=== PATIENT | male | born 1955 | race Caucasian/White ===

== ENCOUNTER 2017-02-02 07:17 | Inpatient (IN) | payer BC ==
[2017-02-02] MEDS ORDERED: SODIUM CHLORIDE 0.9% 1,000 ML IV STA ×2 (08:16→08:40)
[2017-02-02] MEDS ORDERED: IV VANCOMYCIN PER PHARMACY 1 EACH MISC MISCELLANE PRN (08:17)
[2017-02-02] MEDS ORDERED: VANCOMYCIN 1,750 MG in SODIUM CHLORIDE 0.9% 250 ML IVPB STA (08:17)
[2017-02-02] MEDS ORDERED: HYDROmorphone 1 MG/ML 1 ML SYRINGE IVP STA (08:17)
[2017-02-02] MEDS ORDERED: ONDANSETRON 4 MG/2 ML VIAL IVP STA (08:17)
--- NOTE | 2017-02-02 08:20 | ED ---
General Adult HPI <Blake Downing - Last Filed: 02/02/17 09:20> - General Source: patient, RN notes reviewed Mode of arrival: ambulatory Limitations: no limitations <Miki Ro - Last Filed: 02/02/17 09:23> - General Chief complaint: Extremity Injury, Lower Stated complaint: sent by [facility] for mrsa left 2nd toe Time Seen by Provider: 02/02/17 08:09 - History of Present Illness Initial comments: Patient 61-year-old male who presents emergency room today with a chief complaint of infection to the left foot. He does admit that he noticed symptoms proxy 5 days ago. States located like a small spider bite. Patient does admit that [facility] ago was placed on doxycycline and also Keflex. States the infection has got worse. There is more redness swelling to his left second toe spreading of the left foot. Patient does admit to increased pain. He states pain medication of tramadol they gave him is not helping. Patient does admit to history of MRSA. Denies any other complaints at this time. Patient denies any recent fever, chills, shortness of breath, chest pain, back pain, abdominal pain, nausea or vomiting, numbness or tingling , dysuria or hematuria, constipation or diarrhea, headaches or visual changes, or any other complaints. (Miki Ro) - Related Data Home Medications Medication Instructions Recorded Confirmed Aspirin EC [Ecotrin Low Dose] 81 mg PO DAILY 02/02/17 02/02/17 Mupirocin 2% Oint [Bactroban 2% 1 applic TOPICAL DAILY 02/02/17 02/02/17 Oint] Nebivolol HCl [Bystolic] 10 mg PO DAILY 02/02/17 02/02/17 traMADol HCL [Ultram] 50 mg PO Q4HR PRN 02/02/17 02/02/17 Allergies Allergy/AdvReac Type Severity Reaction Status Date / Time No Known Allergies Allergy Verified 02/02/17 07:46 Review of Systems ROS Other: All systems not noted in ROS Statement are negative. <Blake Downing - Last Filed: 02/02/17 09:20> ROS Other: All systems not noted in ROS Statement are negative. <Miki Ro - Last Filed: 02/02/17 09:23> ROS Statement: Those systems with pertinent positive or pertinent negative responses have been documented in the HPI. Past Medical History Past Medical History: Hypertension History of Any Multi-Drug Resistant Organisms: MRSA Past Surgical History: Joint Replacement, Orthopedic Surgery Past Psychological History: No Psychological Hx Reported Smoking Status: Current every day smoker Past Alcohol Use History: Occasional Past Drug Use History: None Reported <Miki Ro - Last Filed: 02/02/17 09:23> General Exam General appearance: alert, in no apparent distress Head exam: Present: atraumatic, normocephalic, normal inspection Eye exam: Present: normal appearance, PERRL, EOMI. Absent: scleral icterus, conjunctival injection, periorbital swelling ENT exam: Present: normal exam, mucous membranes moist Neck exam: Present: normal inspection. Absent: tenderness, meningismus, lymphadenopathy Respiratory exam: Present: normal lung sounds bilaterally. Absent: respiratory distress, wheezes, rales, rhonchi, stridor Cardiovascular Exam: Present: regular rate, normal rhythm, normal heart sounds. Absent: systolic murmur, diastolic murmur, rubs, gallop, clicks GI/Abdominal exam: Present: soft, normal bowel sounds. Absent: distended, tenderness, guarding, rebound, rigid Extremities exam: Present: normal inspection, full ROM, normal capillary refill. Absent: tenderness, pedal edema, joint swelling, calf tenderness Back exam: Present: normal inspection Neurological exam: Present: alert, oriented X3, CN II-XII intact Psychiatric exam: Present: normal affect, normal mood Skin exam: Present: warm, dry, intact, normal color. Absent: rash <Blake Downing - Last Filed: 02/02/17 09:20> Limitations: no limitations <Miki Ro - Last Filed: 02/02/17 09:23> - General Exam Comments Initial Comments: General: The patient is awake and alert, in no distress, and does not appear acutely ill. Neck: The neck is supple, there is no tenderness or JVD. Cardiovascular: There is a regular rate and rhythm. No murmur, rub or gallop is appreciated. Respiratory: Lungs are clear to auscultation, respirations are non-labored, breath sounds are equal. No wheezes, stridor, rales, or rhonchi. Musculoskeletal: Full range of motion. Sensation intact. Pulses equal bilaterally 2+. Strength 5/5. Neurological: A&O x 3. CN II-XII intact, There are no obvious motor or sensory deficits. Coordination appears grossly intact. Speech is normal. Skin: He does have increased redness swelling to the top of the second digit of the left foot third there is increased redness swelling spreading up the left foot to approximately left ankle. Area centrally over the left second digit has a white appearance. Psychiatric: Normal mood and affect. (Miki Ro) Course <Blake Downing - Last Filed: 02/02/17 09:20> <Miki Ro - Last Filed: 02/02/17 09:23> Vital Signs 02/02/17 07:21 Temperature 98.8 F Pulse Rate 85 Respiratory 20 Rate Blood Pressure 126/69 O2 Sat by Pulse 97 Oximetry - Reevaluation(s) Reevaluation #1: 02/02/17 09:20 On evaluation patient does have significant infection of the toe, has significant cellulitis require IV antibiotics secondary to being on outpatient antibiotic no improvement (Blake Downing) Medical Decision Making - Lab Data Result diagrams: 02/02/17 07:59 <Blake Downing - Last Filed: 02/02/17 09:20> - Lab Data Result diagrams: 02/02/17 07:59 <Miki Ro - Last Filed: 02/02/17 09:23> - Medical Decision Making 61 year with significant toe cellulitis, patient replace an IV antibiotics, hence failed outpatient treatment (Blake Downing) - Lab Data Lab Results 02/02/17 Range/Units 07:59 WBC 11.2 H (3.8-10.6) k/uL RBC 5.29 (4.30-5.90) m/uL Hgb 17.5 (13.0-17.5) gm/dL Hct 50.6 (39.0-53.0) % MCV 95.8 (80.0-100.0) fL MCH 33.0 (25.0-35.0) pg MCHC 34.5 (31.0-37.0) g/dL RDW 13.7 (11.5-15.5) % Plt Count 187 (150-450) k/uL Neutrophils % 71 % Lymphocytes % 13 % Monocytes % 8 % Eosinophils % 6 % Basophils % 0 % Neutrophils # 8.0 H (1.3-7.7) k/uL Lymphocytes # 1.5 (1.0-4.8) k/uL Monocytes # 0.9 (0-1.0) k/uL Eosinophils # 0.7 (0-0.7) k/uL Basophils # 0.0 (0-0.2) k/uL Manual Slide Review Performed Hypochromasia Slight Poikilocytosis Moderate Disposition <Blake Downing - Last Filed: 02/02/17 09:20> Time of Disposition: 09:08 <Miki Ro - Last Filed: 02/02/17 09:23> Clinical Impression: Cellulitis Disposition: ADMITTED IP TO THIS HOSP Condition: Good Referrals: Michael Uribe DO [Primary Care Provider] - 1-2 days
[2017-02-02 08:32] LABS: Basophils % (A) 0 %; CH 31.3; CHCM 32.8; Eosinophils # (A) 0.7 k/uL (0-0.7); Eosinophils % (A) 6 %; HCT 50.6 % (39.0-53.0); HGB 17.5 gm/dL (13.0-17.5); Hypochromasia Slight; Large Platelets Flag Marked; Luc # (Auto) 0.18; Luc % (Auto) 2; Lymphocytes # (A) 1.5 k/uL (1.0-4.8); Lymphocytes % (A) 13 %; MCHC 34.5 g/dL (31.0-37.0); MCV 95.8 fL (80.0-100.0); Mean Platelet Volume 13.4; Monocytes # (A) 0.9 k/uL (0-1.0); Monocytes % (A) 8 %; Neutrophils % (A) 71 %; Poikilocytosis Moderate; RBC 5.29 m/uL (4.30-5.90); RDW 13.7 % (11.5-15.5); WBC 11.2 k/uL (3.8-10.6); WBC (Perox) 11.88
--- NOTE | 2017-02-02 08:44 | XR ---
EXAMINATION TYPE: XR foot complete LT DATE OF EXAM: 02/02/2017 8:33 AM CLINICAL HISTORY: Second toe infection and pain. TECHNIQUE: Frontal, lateral, and oblique images of the left foot are obtained. COMPARISON: None FINDINGS: There is no acute fracture/dislocation evident in the left foot. No suspicious cortical de struction or periosteal reaction is seen. Small superior and moderate size inferior calcaneal spurs a re noted. The joint spaces in the left foot appear within normal limits. The overlying soft tissue a ppears unremarkable. IMPRESSION: There is no convincing radiographic evidence for acute osteomyelitis with particular att ention to second toe. If clinical suspicion persists further investigation with 3 phase bone scan or MRI may be warranted.
[2017-02-02 08:46] LABS: Manual Review Performed
[2017-02-02] MEDS ORDERED: ONDANSETRON 4 MG/2 ML VIAL IVP PRN (09:21)
[2017-02-02] MEDS ORDERED: ACETAMINOPHEN TAB 325 MG TAB PO PRN (09:21)
[2017-02-02] MEDS ORDERED: NALOXONE 0.4 MG/ML 1 ML VIAL IV PRN (09:21)
[2017-02-02] MEDS ORDERED: SODIUM CHLORIDE 0.9% 1,000 ML IV ONE (09:21)
[2017-02-02 09:32] LABS: ALT 32 U/L (21-72); AST 35 U/L (17-59); Alkaline Phosphatase 68 U/L (38-126); Anion Gap 10 mmol/L; Blood Urea Nitrogen 18 mg/dL (9-20); Calcium 9.1 mg/dL (8.4-10.2); Carbon Dioxide 24 mmol/L (22-30); Chloride 104 mmol/L (98-107); Glucose 97 mg/dL (74-99); Non-African American GFR(MDRD) >60 (>60 ml/min/1.73 sqM); Potassium 4.6 mmol/L (3.5-5.1); Sodium 138 mmol/L (137-145); Total Bilirubin 0.8 mg/dL (0.2-1.3); Total Protein 7.3 g/dL (6.3-8.2)
[2017-02-02] MEDS: HYDROmorphone 1 MG/ML 1 ML SYRINGE IV PRN ×4 (11:42→21:00)
[2017-02-02] MEDS: VANCOMYCIN 1,500 MG in SODIUM CHLORIDE 0.9% 250 ML IVPB SCH (17:51)
[2017-02-03] MEDS: HYDROmorphone 1 MG/ML 1 ML SYRINGE IV PRN ×7 (00:28→23:38)
[2017-02-03] MEDS: VANCOMYCIN 1,500 MG in SODIUM CHLORIDE 0.9% 250 ML IVPB SCH ×2 (06:16→17:08)
--- NOTE | 2017-02-03 06:44 | CONS ---
DATE OF CONSULTATION: DATE OF SERVICE: 02/02/2017 REASON FOR CONSULTATION: Left foot and second toe cellulitis. HISTORY OF PRESENT ILLNESS: The patient is a 61-year-old male who developed a boil on his dorsal aspect of his left second toe about a week and half ago. The patient did mention that the area became pussy and did have spontaneous drainage of a small amount of pus. The patient said that he tried to squeeze it out. Over the last few days, the area became more swollen and red with redness expanding to the dorsum of his foot. Patient had been complaining of some throbbing pain 4 to 5 out of 10 and no radiation. The patient did have some chills but denies any high grade fever. With these symptoms, the patient did go into the [facility]. Patient has been evaluated by the physician there and has been treated with doxycycline and Keflex and the patient was advised for 48 hours and the area became more swollen and red that he needed to go to the ER. Patient apparently did have worsening of the redness and swelling as he came to the [facility] ER. The patient has been evaluated by the ER physician. He did have x-rays of the left foot with no evidence of any bony changes. The patient was started on vancomycin. I was asked to see the patient for further recommendation regarding antibiotic therapy. Patient did mention that the ER physician did some culture on him down in the ER. REVIEW OF SYSTEMS: CONSTITUTIONAL: Positive for weakness and some chills. EYES: No complaint. ENT: No complaint. RESPIRATORY: No complaint. CARDIOVASCULAR: No complaint. GENITOURINARY: No complaint. GASTROINTESTINAL: No complaint. MUSCULOSKELETAL: As per HPI. INTEGUMENTARY: As per HPI. PSYCHOLOGIC: No complaint. ENDOCRINE: No complaint. NEUROLOGIC: No complaint. PAST MEDICAL HISTORY: Significant for hypertension and MRSA infection. PAST SURGICAL HISTORY: reviewed. SOCIAL HISTORY: The patient is a current every day smoker. Occasionally drinks. Denies any drug use. FAMILY HISTORY: No pertinent findings were noticed. ALLERGIES: No known drug allergies. Medications currently include the patient is on Tylenol, [place], aspirin, Dilaudid, Narcan, Bystolic, Zofran and vancomycin, pharmacy to dose. On examination, blood pressure is 123/65 with a pulse of 62, temperature 98.1. He is 92% on room air. General description is a middle-age male lying in bed in no distress. No tachypnea or accessory muscle of respiration use. HEENT examination showed no pallor or scleral icterus. Oral mucosa membranes dry. NECK: Trachea central. There is no thyromegaly. LUNGS: Unlabored breathing. Clear to auscultation anteriorly. No wheeze or crackle. HEART: S1, S2. Regular rate and rhythm. ABDOMEN: Soft, no tenderness. No guarding or rigidity. EXTREMITIES: No edema of the feet. EXAMINATION OF THE LEFT FOOT: The second toe remains to be swollen and red. No significant fluctuation induration was noticed with redness expanding to the dorsum of his left foot. NEUROLOGICAL: The patient is awake, alert, oriented x3. Mood and affect normal. LABS: Hemoglobin is 17.5, white count 11.2 with a BUN of 18, creatinine 1.0. Blood culture obtained, currently pending. DIAGNOSTIC IMPRESSION AND PLAN: Patient with left second toe foot cellulitis, failing outpatient doxycycline and Keflex therapy. The patient did have a history of methicillin-resistant Staphylococcus aureus infection, could be more likely an methicillin-resistant Staphylococcus aureus cellulitis. PLAN: 1. We will obtain local wound culture to guide the antibiotic therapy. 2. Vancomycin, pharmacy to dose, target trough of 15. 3. We will follow up on his clinical condition and cultures to further adjust the medication if needed. Thank you for this consultation. We will follow this patient along with you. CAMPBELL
[2017-02-03] MEDS: ASPIRIN 81 MG CHEW PO SCH (08:07)
[2017-02-03 09:05] LABS: ALT 31 U/L (21-72); AST 39 U/L (17-59); Alkaline Phosphatase 58 U/L (38-126); Anion Gap 8 mmol/L; Blood Urea Nitrogen 15 mg/dL (9-20); Calcium 8.9 mg/dL (8.4-10.2); Carbon Dioxide 21 mmol/L (22-30); Chloride 108 mmol/L (98-107); Glucose 85 mg/dL (74-99); Non-African American GFR(MDRD) >60 (>60 ml/min/1.73 sqM); Sodium 137 mmol/L (137-145); Total Bilirubin 0.8 mg/dL (0.2-1.3); Total Protein 6.6 g/dL (6.3-8.2)
[2017-02-03 09:09] LABS: Potassium 4.9 mmol/L (3.5-5.1)
[2017-02-03] MEDS: NEBIVOLOL 5 MG TAB PO SCH (09:10)
[2017-02-03 09:28] LABS: Basophils % (A) 1 %; CH 32.2; CHCM 33.2; Eosinophils # (A) 0.8 k/uL (0-0.7); Eosinophils % (A) 10 %; HCT 48.4 % (39.0-53.0); HDW 2.22; HGB 15.8 gm/dL (13.0-17.5); Luc # (Auto) 0.15; Luc % (Auto) 2; Lymphocytes # (A) 1.7 k/uL (1.0-4.8); Lymphocytes % (A) 23 %; MCH 31.8 pg (25.0-35.0); MCHC 32.7 g/dL (31.0-37.0); MCV 97.4 fL (80.0-100.0); Mean Platelet Volume 6.9; Monocytes # (A) 0.6 k/uL (0-1.0); Monocytes % (A) 8 %; Neutrophils # (A) 4.4 k/uL (1.3-7.7); Neutrophils % (A) 57 %; RBC 4.96 m/uL (4.30-5.90); RDW 13.1 % (11.5-15.5); WBC 7.7 k/uL (3.8-10.6)
[2017-02-03] MEDS: HYDROcodone/APAP 5-325MG 1 EACH TAB PO PRN ×3 (09:56→21:23)
[2017-02-03 11:40] VITALS: BMI 27.4
--- NOTE | 2017-02-03 15:16 | P.HPIM ---
History of Present Illness H&P Date: 02/03/17 Chief Complaint: Left foot infection Patient is a 61-year-old male, patient of Dr. Uribe in the outpatient setting, with medical history significant for hypertension, previous history of MRSA to left hip and right index finger, arrhythmia, and nicotine dependence. Patient presented to the emergency department with complains of second toe infection on left foot. Onset of symptoms approximately 5 days ago. Patient went to [facility] 2 days prior to admission and was started on doxycycline and Keflex with no improvement. Patient admits to associated symptoms of chills. No history of fevers, shortness of breath, nausea, vomiting, chest pain, abdominal pain, numbness or tingling, dysuria or hematuria, constipation or diarrhea. X-ray of left foot negative for acute osteomyelitis. On admission WBC 11.2. No evidence of fevers. Vital signs normal. Patient was started on IV vancomycin and transferred to the medical floor with consult to Dr. Hernandez from infectious disease service. Aerobic wound culture and blood cultures were obtained. Upon examination, patient reports improvement in left foot pain. No other complaints at this time. WBC normal this morning. Preliminary cultures in progress. Past Medical History Past Medical History: Hypertension Additional Past Medical History / Comment(s): Arrhythmia (does not know name), past L clavicle fracture. History of Any Multi-Drug Resistant Organisms: MRSA Date of last positivie culture/infection: 2014 per pt-tx in Dr. Uribe office MDRO Source:: L hip and R index finger per pt Past Surgical History: Orthopedic Surgery Additional Past Surgical History / Comment(s): L knee arthroscopy Past Anesthesia/Blood Transfusion Reactions: No Reported Reaction Past Psychological History: No Psychological Hx Reported Additional Psychological History / Comment(s): Pt resides with his spouse. He is independent. Smoking Status: Current every day smoker Past Alcohol Use History: Occasional Additional Past Alcohol Use History / Comment(s): Pt started smoking in 1969 and he is a ppd smoker. Past Drug Use History: None Reported - Past Family History Father Family Medical History: COPD Additional Family Medical History / Comment(s): Father is 83 yrs old. He has emphysema. He is a smoker. Mother Family Medical History: COPD Additional Family Medical History / Comment(s): Mother at the age of 70 or72 yrs of emphysema. She was a smoker. Medications and Allergies Home Medications Medication Instructions Recorded Confirmed Type Aspirin EC [Ecotrin Low Dose] 81 mg PO DAILY 02/02/17 02/02/17 History Mupirocin 2% Oint [Bactroban 2% 1 applic TOPICAL DAILY 02/02/17 02/02/17 History Oint] Nebivolol HCl [Bystolic] 10 mg PO DAILY 02/02/17 02/02/17 History traMADol HCL [Ultram] 50 mg PO Q4HR PRN 02/02/17 02/02/17 History Allergies Allergy/AdvReac Type Severity Reaction Status Date / Time No Known Allergies Allergy Verified 02/02/17 07:46 Physical Exam Vitals: Vital Signs Temp Pulse Resp BP Pulse Ox 02/03/17 08:00 56 L 17 02/03/17 07:00 98.2 F 56 L 17 126/71 92 L 02/02/17 22:37 98.1 F 62 16 123/65 92 L Intake and Output 02/03/17 02/03/17 02/03/17 06:59 14:59 22:59 Intake Total 800 360 Balance 800 360 Intake: IV 800 Sodium Chloride 0.9% 1, 800 000 ml @ 100 mls/hr IV . Q10H ONE Rx#:[id number] Oral 360 Other: Voiding Method Toilet Toilet Urinal Urinal Weight 97.069 kg Patient Weight 02/04/17 06:59 Weight 97.069 kg GENERAL: Pt awake and alert, well-appearing, well-nourished, and in no acute distress. HEAD: Atraumatic, normocephalic. EYES: Pupils equal, round, sclera anicteric, conjunctiva are normal. ENT: Moist mucous membranes. NECK: Supple without lymphadenopathy or JVD. LUNGS: Breath sounds clear to auscultation bilaterally. No wheezes, rales, or rhonchi. HEART: Heart S1, S2, no S3 or S4. Regular rate and rhythm. No murmurs, rubs or gallops. ABDOMEN: Soft, nontender, nondistended, normoactive bowel sounds. No guarding, no rebound. No masses or organomegaly appreciated. EXTREMITIES: Left second toe foot cellulitis edematous with erythema improved since yesterday. No active drainage. NEUROLOGICAL: Pt oriented x 3. Cranial nerves II through XII grossly intact. Strength and sensation grossly intact. PSYCH: Normal mood, normal affect. SKIN: Warm, dry, intact. Normal turgor. No rashes or lesions. Results CBC & Chem 7: 02/03/17 08:24 02/03/17 08:24 Labs: Abnormal Lab Results - Last 24 Hours (Table) 02/03/17 02/03/17 Range/Units 08:24 08:24 Eosinophils # 0.8 H (0-0.7) k/uL Chloride 108 H (98-107) mmol/L Carbon Dioxide 21 L (22-30) mmol/L Microbiology - Last 24 Hours (Table) 02/03/17 04:36 Gram Stain - Preliminary Foot - Left Wound Culture - Preliminary 02/02/17 07:59 Blood Culture - Preliminary Blood No Growth after 24 hours Thrombosis Risk Factor Assmnt - DVT/VTE Prophylaxis DVT/VTE Prophylaxis: Mechanical Prophylaxis ordered - Choose All That Apply Any of the Below Risk Factors Present?: Yes Each Factor Represents 1 point: Obesity (BMI >25) Other Risk Factors: Yes Each Risk Factor Represents 2 Points: Age 61-74 years Other congenital or acquired thrombophilia - If yes, enter type in comment: No Thrombosis Risk Factor Assessment Total Risk Factor Score: 3 Thrombosis Risk Factor Assessment Level: Moderate Risk Assessment and Plan Plan: Impression and plan: 1. Cellulitis to the second toe on left foot, failed outpatient treatment. Infectious disease consult in place, recommendations noted. Continue IV vancomycin. Await result of wound and blood cultures. Continue supportive treatment. Continue IV hydration. 2. Hypertension. Continue nebivolol 10 mg by mouth daily. 3. Nicotine dependence. Smoking cessation encouraged. Continue to monitor patient. Continue current medications. Continue to follow with infectious disease service. Repeat CBC and BMP in a.m. The above impression and plan have been discussed and directed by Dr. Uribe. Radha ASCENCIO acting as scribe for Dr. Uribe.
--- NOTE | 2017-02-03 15:56 | PN ---
DATE OF SERVICE: 02/03/2017 REASON FOR FOLLOWUP: Left second toe and foot cellulitis. INTERVAL HISTORY: The patient is afebrile. He is feeling better, breathing comfortably. Denies any worsening pain to the left second toe and foot area. The patient denies having significant chest pain, shortness of breath or cough. No abdominal pain or any diarrhea. On examination, blood pressure is 126/71 with a pulse of 56, temperature 98.2. He is 92% on room air. General description is a middle-aged male lying in bed in no distress. RESPIRATORY SYSTEM: Unlabored breathing. Clear to auscultation anteriorly. HEART: S1, S2. Regular rate and rhythm. ABDOMEN: Soft. No tenderness. Left second toe remains swollen and red. The redness on the dorsum of the left foot has improved. LABS: Hemoglobin is 15.8, white count 7.7 with a BUN of 15, creatinine 0.84. Blood culture so far negative. Wound cultures obtained yesterday are currently pending. DIAGNOSTIC IMPRESSION AND PLAN: Patient with a left second toe wound with secondary cellulitis. X-rays were negative. Will go ahead and obtain a bone scan of the left foot to make sure there is no evidence of any osteomyelitis. The patient will continue vancomycin, as he does have history of MRSA infection, and the redness has slightly improved. Discharge antibiotics will depend upon the bone scan as well as the culture report. Likely he will be here over the weekend.
[2017-02-04] MEDS ORDERED: VANCOMYCIN TROUGH DUE 1 EACH MISC MISCELLANE ONE (05:00)
[2017-02-04 05:55] LABS: Basophils # (A) 0.1 k/uL (0-0.2); Basophils % (A) 2 %; CH 32.5; CHCM 34.6; Eosinophils # (A) 0.8 k/uL (0-0.7); Eosinophils % (A) 12 %; HCT 46.3 % (39.0-53.0); HDW 2.42; Luc # (Auto) 0.21; Luc % (Auto) 3; Lymphocytes # (A) 1.7 k/uL (1.0-4.8); Lymphocytes % (A) 25 %; MCH 32.4 pg (25.0-35.0); MCHC 34.4 g/dL (31.0-37.0); MCV 94.1 fL (80.0-100.0); Mean Platelet Volume 6.4; Monocytes # (A) 0.7 k/uL (0-1.0); Monocytes % (A) 10 %; Neutrophils # (A) 3.2 k/uL (1.3-7.7); Neutrophils % (A) 49 %; RBC 4.93 m/uL (4.30-5.90); RDW 12.9 % (11.5-15.5); WBC 6.6 k/uL (3.8-10.6); WBC (Perox) 6.04
[2017-02-04 06:21] LABS: Anion Gap 6 mmol/L; Blood Urea Nitrogen 14 mg/dL (9-20); Calcium 9.5 mg/dL (8.4-10.2); Carbon Dioxide 28 mmol/L (22-30); Chloride 107 mmol/L (98-107); Glucose 93 mg/dL (74-99); Non-African American GFR(MDRD) >60 (>60 ml/min/1.73 sqM); Potassium 4.8 mmol/L (3.5-5.1); Sodium 141 mmol/L (137-145)
[2017-02-04] MEDS: VANCOMYCIN 1,500 MG in SODIUM CHLORIDE 0.9% 250 ML IVPB SCH ×2 (06:27→17:55)
--- NOTE | 2017-02-04 07:37 | NM ---
EXAMINATION TYPE: NM bone 3 phase DATE OF EXAM: 02/03/2017 11:04 PM COMPARISON: Correlation radiographs 02/02/2017 HISTORY: 61-year-old male assess for left second toe osteomyelitis. Open wound at the top of the seco nd toe for one week. TECHNIQUE: Triple phase bone scintigraphy was performed following the injection of27.2 mCi Tc 99m MDP . Immediate images and 5 hours post injection images acquired. Imaging performed of the bilateral di stal lower extremities. FINDINGS: Flow images show hyperemia to the left forefoot. Focal increased tracer activity centered along the s econd toe on pool images. However, on delayed images, there is focal increased activity at the distal aspect of the left great toe and within the left greater than right mid foot/hindfoot regions. There is only vague linear incr eased activity along the left second toe probably residual soft tissue activity. IMPRESSION: Abnormal activity involving the left second toe on flow and pool images but no focal intense activity here on delayed images. Findings at this time are more suggestive of soft tissue infection/inflammat ion rather than osteomyelitis. Follow-up as indicated.
[2017-02-04] MEDS: HYDROcodone/APAP 5-325MG 1 EACH TAB PO PRN ×3 (08:12→17:55)
[2017-02-04] MEDS: ASPIRIN 81 MG CHEW PO SCH (08:13)
[2017-02-04] MEDS: NEBIVOLOL 5 MG TAB PO SCH (08:13)
--- NOTE | 2017-02-04 15:58 | PN ---
DATE OF SERVICE: 02/04/2017 INTERVAL HISTORY: Mr. Booker is a 61-year-old male with who follows with Dr. Uribe in the outpatient setting. He has a past medical history of hypertension, MRSA of the left hip and right index finger, nicotine dependence. He was admitted to the hospital with the chief complaint of left second toe infection. Patient's symptoms started 5 days back. He is currently being treated for cellulitis. He did have a bone scan done to rule out osteomyelitis. Today the patient is comfortably lying in bed; appears to be in no acute distress. REVIEW OF SYSTEMS: CONSTITUTIONAL: Denies having any fever, chills or rigors. RESPIRATORY: No cough. No difficulty in breathing. CARDIAC: No chest pain. No palpitations. GI: No abdominal pain, nausea, vomiting or diarrhea. : No dysuria or hematuria. Patient's medications have been reviewed. On examination, patient's vital signs are temperature 97.9, heart rate 59, respiratory rate 16, blood pressure 131/71. Saturating at 94% on room air. GENERAL EXAMINATION: Patient appears to be in no acute distress. Appears well-developed, well-nourished. HEAD: Atraumatic, normocephalic. EYES: Pupils round and reactive to light. NECK: No JVD. No thyromegaly. CARDIOVASCULAR: S1, S2 heard. No additional sounds. RESPIRATORY: Bilateral breath sounds are positive. No wheeze or crackles. ABDOMEN: Soft, nontender. No organomegaly. Bowel sounds are positive. Examination of the left second toe showing signs of cellulitis. The area that was demarcated with a pen shows receding of the erythema. WOOD STAINER: Awake, alert and oriented x3. No focal neurological deficits. PSYCHIATRIC: Appropriate mood and affect. PATIENT'S LABS: Sodium 141, potassium 4.8, chloride 107, bicarb 28. BUN 14, creatinine 1. White count 6.6, hemoglobin 16, platelets of 204. Vancomycin trough level is 11.9. ASSESSMENT AND PLAN: 1. Cellulitis of the left second toe, failed outpatient treatment. Patient is currently on vancomycin, as he has a history of MRSA in the past, and cultures are currently pending. 2. Hypertension. 3. Nicotine dependence. PLAN: The plan is to continue the patient on IV antibiotics in the form of vancomycin until we have final cultures. Patient had a bone scan done this morning which shows no evidence of active osteomyelitis. ID to determine the choice of antibiotics at the time of discharge. Further recommendations depending on the progress of the patient. MTDD
[2017-02-05] MEDS: HYDROcodone/APAP 5-325MG 1 EACH TAB PO PRN ×3 (02:25→21:26)
[2017-02-05] MEDS: VANCOMYCIN 1,500 MG in SODIUM CHLORIDE 0.9% 250 ML IVPB SCH ×2 (06:27→17:44)
[2017-02-05 07:51] LABS: Basophils # (A) 0.1 k/uL (0-0.2); Basophils % (A) 1 %; CHCM 33.1; Eosinophils # (A) 0.9 k/uL (0-0.7); Eosinophils % (A) 13 %; HCT 51.5 % (39.0-53.0); HDW 2.33; HGB 17.1 gm/dL (13.0-17.5); Luc # (Auto) 0.22; Luc % (Auto) 3; Lymphocytes # (A) 1.6 k/uL (1.0-4.8); Lymphocytes % (A) 23 %; MCH 32.3 pg (25.0-35.0); MCHC 33.3 g/dL (31.0-37.0); MCV 97.1 fL (80.0-100.0); Mean Platelet Volume 6.8; Monocytes # (A) 0.7 k/uL (0-1.0); Monocytes % (A) 10 %; Neutrophils # (A) 3.4 k/uL (1.3-7.7); Neutrophils % (A) 50 %; RBC 5.31 m/uL (4.30-5.90); WBC 6.8 k/uL (3.8-10.6); WBC (Perox) 6.93
[2017-02-05 08:26] LABS: Anion Gap 12 mmol/L; Blood Urea Nitrogen 16 mg/dL (9-20); Calcium 9.6 mg/dL (8.4-10.2); Carbon Dioxide 22 mmol/L (22-30); Chloride 108 mmol/L (98-107); Glucose 90 mg/dL (74-99); Non-African American GFR(MDRD) >60 (>60 ml/min/1.73 sqM); Potassium 4.5 mmol/L (3.5-5.1); Sodium 142 mmol/L (137-145)
[2017-02-05] MEDS: ASPIRIN 81 MG CHEW PO SCH (09:10)
[2017-02-05] MEDS: NEBIVOLOL 5 MG TAB PO SCH (09:11)
[2017-02-05] MEDS ORDERED: DOCUSATE 100 MG CAP PO PRN (11:34)
--- NOTE | 2017-02-05 12:45 | PN ---
DATE OF SERVICE: 02/05/2017. INTERVAL HISTORY: Mr. Booker is a 61-year-old male who follows with Dr. 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 Patient is being treated for cellulitis. The patient did have a bone scan to rule out osteomyelitis yesterday. Today patient is lying comfortably in bed, appears to be no acute distress. REVIEW OF SYSTEMS: CONSTITUTIONAL: Denies any fevers ( ). RESPIRATORY: No cough. No difficulty in breathing. CARDIAC: No chest pain. No palpitations. GI: No abdominal pain, nausea, vomiting, or diarrhea. : No dysuria or hematuria. Patient's medications have been reviewed. On examination, patient's vital signs: Temperature 98.3, heart rate 57, respiratory rate 18, blood pressure 133/73, saturating at 93% on room air. GENERAL EXAMINATION: The patient appears to be in no acute distress. Well developed. Well nourished. HEAD: Atraumatic, normocephalic. EYES: Pupils, round, and reactive to light. NECK: No JVD. No thyromegaly. CARDIOVASCULAR: S1, S2 heard. No additional sounds. RESPIRATORY: Breath sounds are positive. No wheeze or crackles. ABDOMEN: Soft, nontender, no organomegaly. Bowel sounds are positive. EXTREMITIES: Examination of the left second toe is showing signs of cellulitis. He has denuded skin around and the pus point and he states that when he had a shower this morning it drained some pus. The area that is demarcated with a pen shows receding of erythema. 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 No focal neurological deficits. PSYCHIATRIC: Appropriate mood and affect. Patient's labs: White count of 6.8, hemoglobin is 17, platelets of 246, sodium 142, potassium 4.5, chloride 109, bicarb 22. BUN 16, creatinine 0.89. ASSESSMENT AND PLAN: 1. Cellulitis of the left second toe, failed outpatient treatment. Patient currently is on vancomycin as he has history of Methicillin-resistant Staph aureus in the past and cultures are pending. 2. Hypertension. 3. Nicotine dependence. PLAN: Plan is to continue the patient on IV antibiotics in the form of vancomycin until we have the final cultures. The patient had a bone scan done that was negative for active osteomyelitis. ID, to determine the choice of antibiotic at the time of discharge and further recommendations depending on the progress of the patient.
[2017-02-06] MEDS: VANCOMYCIN 1,500 MG in SODIUM CHLORIDE 0.9% 250 ML IVPB SCH (05:41)
--- NOTE | 2017-02-06 08:02 | PN ---
DATE OF SERVICE: 02/05/2017 Reason for followup is left second toe cellulitis. INTERVAL HISTORY: The patient is afebrile, has been breathing comfortably. Pain, swelling and redness to the left big toe area has slightly improved, no drainage. Patient denies any significant chest pain, shortness of breath, cough and no abdominal pain or any diarrhea. On examination, the blood pressure is 125/70 with a pulse of 88, temperature 98.8. He is 93% on room air. General description is a middle-aged male lying in bed, in no distress. RESPIRATORY SYSTEM: Unlabored breathing. Clear to auscultation anteriorly. HEART: S1, S2. Regular rate and rhythm. ABDOMEN: Soft, no tenderness. Left foot over swelling and redness is slightly improved. No drainage. LABS: Hemoglobin is 17.1, white count of 6.8, BUN of 16, creatinine is 0.89. Wound culture has been usual skin sinha. The bone scan was negative for any osteomyelitis. DIAGNOSTIC IMPRESSION AND PLAN: Patient with left second toe wound and secondary cellulitis and wound in the foot. The patient seemed to have overall improvement. Would skin was negative and the cultures were negative for any resistant pathogen. Plan to finish therapy with p.o. Keflex 500 mg daily q.6 hours for about 2 weeks with outpatient followup. Continue supportive care.
[2017-02-06] MEDS: ASPIRIN 81 MG CHEW PO SCH (08:03)
[2017-02-06] MEDS: NEBIVOLOL 5 MG TAB PO SCH (08:04)
[2017-02-06 08:05] VITALS: PULSE 56; RESP 16; TEMP 98.4
[2017-02-06 08:13] VITALS: BP 122/84
[2017-02-06 08:14] LABS: Basophils # (A) 0.1 k/uL (0-0.2); Basophils % (A) 1 %; CH 32.4; CHCM 33.8; Eosinophils # (A) 1.1 k/uL (0-0.7); Eosinophils % (A) 14 %; HCT 52.3 % (39.0-53.0); HDW 2.32; HGB 16.9 gm/dL (13.0-17.5); Luc # (Auto) 0.19; Luc % (Auto) 3; Lymphocytes # (A) 1.5 k/uL (1.0-4.8); Lymphocytes % (A) 19 %; MCH 31.2 pg (25.0-35.0); MCHC 32.4 g/dL (31.0-37.0); MCV 96.4 fL (80.0-100.0); Mean Platelet Volume 6.7; Monocytes # (A) 0.6 k/uL (0-1.0); Monocytes % (A) 8 %; Neutrophils # (A) 4.2 k/uL (1.3-7.7); Neutrophils % (A) 56 %; RBC 5.42 m/uL (4.30-5.90); RDW 13.1 % (11.5-15.5); WBC 7.6 k/uL (3.8-10.6); WBC (Perox) 7.36
[2017-02-06 08:30] LABS: Anion Gap 9 mmol/L; Blood Urea Nitrogen 17 mg/dL (9-20); Calcium 9.5 mg/dL (8.4-10.2); Carbon Dioxide 24 mmol/L (22-30); Chloride 107 mmol/L (98-107); Glucose 95 mg/dL (74-99); Non-African American GFR(MDRD) >60 (>60 ml/min/1.73 sqM); Potassium 4.4 mmol/L (3.5-5.1); Sodium 140 mmol/L (137-145)
[2017-02-06] MEDS ORDERED: ceFAZolin 2 GM in SODIUM CHLORIDE 0.9% 100 ML IVPB SCH (12:00)
--- NOTE | 2017-02-06 12:27 | PN ---
DATE OF SERVICE: 02/06/2017 Reason for followup is second toe cellulitis. INTERVAL HISTORY: The patient is afebrile. Has been breathing comfortably. The patient denies any chest pain, shortness of breath or cough. No abdominal pain. There is no diarrhea. On examination, blood pressure 122/84 with a pulse of 86, temperature 98.4, he is 94% on room air. General description is a middle-age male, lying in bed in no distress. RESPIRATORY SYSTEM: Unlabored breathing. Clear to auscultation. HEART: S1, S2. Regular rate and rhythm. ABDOMEN: Soft, no tenderness. LABS: Hemoglobin is 16.9, white count is 7.6. DIAGNOSTIC IMPRESSION AND PLAN: Patient with left second toe and foot cellulitis, both skin negative for any osteomyelitis wound cultures, skin gentry. Patient currently on cefazolin, plan to finish therapy with p.o. Keflex 500 mg q.6 hours for another 2 weeks with outpatient followup. Continue supportive care.
--- NOTE | 2017-02-06 12:29 | P.DS ---
Providers Date of admission: 02/02/17 09:21 Expected date of discharge: 02/06/17 Attending physician: Michael Uribe Consults: 02/02/17 10:16 Consult Physician Stat Consulting Provider: Azael Hernandez Consult Reason/Comments: Cellulitis Do you want consulting provider notified?: Yes Primary care physician: Michael Uribe [facility] Course: Patient is a 61-year-old male, patient of Dr. Uribe in the outpatient setting, with past medical history significant for hypertension, resolved the left hip and right index finger, nicotine dependence admitted to the hospital with chief complaint of left second toe infection. Patient was found to have evidence of cellulitis. Bone scan negative for osteomyelitis. Snell skin cultures negative for any resistant pathogens. Patient was evaluated by Dr. Hernandez from infectious disease service for antibiotic management. Patient improved with antibiotics and was deemed stable for discharge to home with close follow-up in the outpatient setting. Discharge diagnoses: 1. Cellulitis of left second toe, failed outpatient treatment. 2. Hypertension. 3. Nicotine dependence. The above impression and plan have been discussed and directed by Dr. Uribe. Radha ASCENCIO acting as scribe for Dr. Uribe. Pertinent Studies: Foot x-ray; bone scan nuclear medicine Patient Condition at Discharge: Good Plan - Discharge Summary New Discharge Prescriptions: Cephalexin [Keflex] 500 mg PO Q6HR #56 cap Discharge Medication List Aspirin EC [Ecotrin Low Dose] 81 mg PO DAILY 02/02/17 [History] Nebivolol HCl [Bystolic] 10 mg PO DAILY 02/02/17 [History] traMADol HCL [Ultram] 50 mg PO Q4HR PRN 02/02/17 [History] Cephalexin [Keflex] 500 mg PO Q6HR #56 cap 02/06/17 [Rx] Follow up Appointment(s)/Referral(s): Michael Uribe DO [Primary Care Provider] - 02/08/17 10:50 am Azael Hernandez MD [STAFF PHYSICIAN] - 02/16/17 10:00 am Patient Instructions/Handouts: Cephalexin (By mouth), Cellulitis (DC) Discharge Disposition: HOME SELF-CARE
== END 2017-02-06 12:41 | disposition home or self-care (01) | DRG 603 ==
LOC: EC 07:17 → 5MS5E 09:21
PROVIDERS: ADMIT Family Medicine; ATTEND Family Medicine
DX: L03.032 Cellulitis of left toe (principal); I10 Essential (primary) hypertension; F17.200 Nicotine dependence, unspecified, uncomplicated; Z86.14 Personal history of Methicillin resistant Staphylococcus aureus infection; Z79.82 Long term (current) use of aspirin; Z79.899 Other long term (current) drug therapy
CPT/HCPCS: 36415; 78315; 80048; 80053; 80202; 85025; 87040; 87070; 87205

== ENCOUNTER → 2019-07-05 | Outpatient (CLI) | payer BC ==
--- NOTE | 2019-07-05 08:31 | US ---
EXAMINATION TYPE: US abdomen complete DATE OF EXAM: 07/05/2019 COMPARISON: NONE CLINICAL HISTORY: R10.84 Abdominal pain. NPO, RUQ pain EXAM MEASUREMENTS: Liver Length: 16.7 cm Gallbladder Wall: 0.3 cm CBD: 0.4 cm Spleen: 9.0 cm Right Kidney: 10.3 x 5.1 x 5.6 cm Left Kidney: 11.2x 2.0 x 5.6 cm Pancreas: Within normal limits Liver: Appears coarse and echogenic. This most commonly relates to hepatic steatosis although can be seen in other hepatocellular diseases and limits evaluation for underlying hepatic masses. Multiple geographic hypoechoic areas of probable focal sparing visualized. Gallbladder: Possible sludge visualized. Echogenic focus measures 0.5 cm Evidence for sonographic Robert's sign: neg CBD: wnl Spleen: wnl Right Kidney: wnl Left Kidney: wnl Upper IVC: wnl Abd Aorta: Proximal and mid portions obscured by overlying bowel gas The intrahepatic portion of the IVC and proximal abdominal aorta are within normal limits. Common theresa e duct is unremarkable. The visualized portions of the pancreas are homogenous. The spleen is unrem arkable. Kidneys are symmetric and free of hydronephrosis. No renal lesions are seen. IMPRESSION: 1. Cholelithiasis and small amount of biliary sludge, however no current sonographic evidence of acut e cholecystitis. 2. Coarsened echotexture of the liver most commonly related to hepatic steatosis although can be seen in other hepatocellular diseases. Multiple geographic areas of hypoechogenicity are favored to repre sent areas of focal fatty sparing.
== END | disposition home or self-care (01) ==
LOC: RADUSWWP 07:15
PROVIDERS: ATTEND Family Medicine
DX: K80.20 Calculus of gallbladder without cholecystitis without obstruction (principal); K83.8 Other specified diseases of biliary tract
CPT/HCPCS: 76700

== ENCOUNTER 2019-07-26 06:29 | Day surgery (SDC) | payer BC ==
[2019-07-24 12:07] VITALS: BMI 27.3
[~2019-07-26 06:29] MED LIST: DEXAMETHASONE SOD PHOSPHATE 10 MG/ML 1 ML VIAL IV ONE; HEPARIN SODIUM,PORCINE 5,000 UNIT/ML 1 ML VIAL SQ ONE; HYDROmorphone 0.5 MG/0.5 ML SYRINGE IVP PRN; LACTATED RINGERS 1,000 ML IV SCH; MIDAZOLAM 2 MG/2 ML VIAL IV PRN; ONDANSETRON 4 MG/2 ML VIAL IVP ONE; SCOPOLAMINE 1.5MG/72HR PATCH TRANSDERM ONE
[2019-07-26] MEDS ORDERED: LIDOCAINE 1% 20 ML VIAL (10MG/ML) FOR IV START INTRADERMA ONE (07:07)
[2019-07-26 07:37] LABS: Basophils # (A) 0.1 k/uL (0-0.2); Basophils % (A) 1 %; Eosinophils # (A) 0.3 k/uL (0-0.7); Eosinophils % (A) 5 %; HCT 49.6 % (39.0-53.0); HGB 17.2 gm/dL (13.0-17.5); Lymphocytes # (A) 1.8 k/uL (1.0-4.8); Lymphocytes % (A) 29 %; MCH 32.8 pg (25.0-35.0); MCHC 34.7 g/dL (31.0-37.0); MCV 94.5 fL (80.0-100.0); Mean Platelet Volume 6.1; Monocytes # (A) 0.5 k/uL (0-1.0); Monocytes % (A) 7 %; Neutrophils # (A) 3.3 k/uL (1.3-7.7); Neutrophils % (A) 54 %; Platelet Count 215 k/uL (150-450); RBC 5.24 m/uL (4.30-5.90); RDW 12.7 % (11.5-15.5); WBC 6.1 k/uL (3.8-10.6)
[2019-07-26 07:43] LABS: Potassium 4.6 mmol/L (3.5-5.1)
[2019-07-26] MEDS ORDERED: ROCURONIUM BROMIDE 10 MG/ML 10 ML VIAL IV ONE (07:52)
[2019-07-26] MEDS ORDERED: NEOSTIGMINE 1 MG/ML 10 ML VIAL ONE (07:52)
[2019-07-26] MEDS ORDERED: GLYCOPYRROLATE 0.2 MG/ML 2 ML VIAL ONE (07:52)
[2019-07-26] MEDS ORDERED: SUCCINYLCHOLINE CHLORIDE 100 MG/5 ML SYR IV ONE (07:52)
[2019-07-26] MEDS ORDERED: KETOROLAC 30 MG/ML 1 ML VIAL ONE (07:52)
[2019-07-26] MEDS ORDERED: MIDAZOLAM 2 MG/2 ML VIAL ONE (07:52)
[2019-07-26] MEDS ORDERED: LIDOCAINE 1% INJ 10MG/ML (20 ML MDV) ONE (07:52)
[2019-07-26] MEDS ORDERED: fentaNYL (PF) 50 MCG/ML 2 ML AMP ONE (07:52)
[2019-07-26] MEDS ORDERED: SODIUM CHLORIDE 0.9% 250 ML with ceFAZolin 2,000 MG IV ONE ×2 (07:56)
--- NOTE | 2019-07-26 08:00 | P.GSHP ---
History of Present Illness H&P Date: 07/26/19 Chief Complaint: Right upper quadrant pain This is a 64-year-old male who presents today for laparoscopic cholestatic. Patient's had complete the right quadrant pain. Patient's found have gallstones. Past Medical History Past Medical History: Hypertension, Osteoarthritis (OA) Additional Past Medical History / Comment(s): "Arrhythmia (does not know name)", History of Any Multi-Drug Resistant Organisms: MRSA Date of last positivie culture/infection: 2014 per pt-tx in Dr. Uribe office MDRO Source:: L hip and R index finger per pt Past Surgical History: Orthopedic Surgery Additional Past Surgical History / Comment(s): L knee arthroscopy Past Anesthesia/Blood Transfusion Reactions: No Reported Reaction Smoking Status: Current every day smoker - Past Family History Father Family Medical History: Cancer, COPD Additional Family Medical History / Comment(s): THROAT CANCER Mother Family Medical History: COPD Additional Family Medical History / Comment(s): Mother at the age of 70 or72 yrs of emphysema. She was a smoker. Medications and Allergies Home Medications Medication Instructions Recorded Confirmed Type Aspirin EC [Ecotrin Low Dose] 81 mg PO DAILY 02/02/17 07/24/19 History Nebivolol HCl [Bystolic] 10 mg PO HS 02/02/17 07/26/19 History Allergies Allergy/AdvReac Type Severity Reaction Status Date / Time No Known Allergies Allergy Verified 07/24/19 11:33 Surgical - Exam Vital Signs Temp Pulse Resp BP Pulse Ox 97.2 F L 62 16 160/99 95 07/26/19 06:47 07/26/19 06:47 07/26/19 06:47 07/26/19 06:47 07/26/19 06:47 - General well developed, well nourished, no distress - Eyes PERRL - ENT normal pinna - Neck no masses - Respiratory normal expansion - Cardiovascular Rhythm: regular - Abdomen Abdomen: soft, non tender Results - Labs 07/26/19 07:00 07/26/19 07:00 Abnormal Lab Results - Last 24 Hours (Table) 07/26/19 Range/Units 07:00 Chloride 112 H (98-107) mmol/L Diabetes panel 07/26/19 Range/Units 07:00 Sodium 142 (137-145) mmol/L Potassium 4.6 (3.5-5.1) mmol/L Chloride 112 H (98-107) mmol/L Carbon Dioxide 23 (22-30) mmol/L Pituitary panel 07/26/19 Range/Units 07:00 Sodium 142 (137-145) mmol/L Potassium 4.6 (3.5-5.1) mmol/L Chloride 112 H (98-107) mmol/L Carbon Dioxide 23 (22-30) mmol/L Adrenal panel 07/26/19 Range/Units 07:00 Sodium 142 (137-145) mmol/L Potassium 4.6 (3.5-5.1) mmol/L Chloride 112 H (98-107) mmol/L Carbon Dioxide 23 (22-30) mmol/L Assessment and Plan Assessment: Cholelithiasis Right quadrant pain We'll perform laparoscopic cholecystectomy.
--- NOTE | 2019-07-26 08:06 | P.OP ---
Date of Procedure: 07/26/19 Preoperative Diagnosis: Gastritis Postoperative Diagnosis: Mild antral gastritis No evidence of esophagitis Retained gastric food Procedure(s) Performed: EGD Anesthesia: MAC Surgeon: Demetrio Stallworth Pathology: other (Antrum) Condition: stable Disposition: PACU Description of Procedure: The patient's placed on the endoscopy table in the lateral position. He received IV sedation. The gastroscope placed oropharynx passed in the esophagus and into the stomach. Scope then placed through the pylorus. First and second portion of the duodenum appeared normal. Scope was then brought back and the antrum this. Mildly inflamed. A biopsies performed. There was a large amount of retained gastric food. Scope was then retroflexed and the remainder some appeared normal. There was a small hiatal hernia. The GE junction was at 39 cm. The distal esophagus. Normal. The proximal esophagus appeared normal. Scope withdrawn for patient.
[2019-07-26] MEDS ORDERED: BUPIVACAINE (PF) 0.25% 30 ML VIAL SQ ONE (08:17)
--- NOTE | 2019-07-26 08:48 | P.OP ---
Date of Procedure: 07/26/19 Preoperative Diagnosis: Cholecystitis Postoperative Diagnosis: Cholecystitis Umbilical hernia Procedure(s) Performed: Laparoscopic cholecystectomy Laparoscopic repair of umbilical hernia Anesthesia: LATONYA Surgeon: Demetrio Stallworth Estimated Blood Loss (ml): 5 Pathology: other (Gallbladder) Condition: stable Disposition: PACU Description of Procedure: The patient was placed on the operating table. The patient received a general endotracheal tube anesthesia. The patients abdomen was prepped and draped in the usual sterile fashion. Through an infraumbilical stab incision, the fascia of the anterior abdominal wall was grasped with a pair of Kochers and then the Veress needle was placed in the peritoneal cavity. Position of the Veress needle was confirmed with positive drop test. The abdomen was then insufflated. After adequate insufflation, the 10 mm trocar was placed in the peritoneal cavity. Following this the laparoscope was placed in the peritoneal cavity. The patient was placed in the head-up, right side up position and then a 5 mm trocar was placed in the right lateral and right subcostal position under direct visualization. A 8 mm trocar was placed in the epigastric position. The gallbladder was grasped in the fundus and infundibul um. Traction on the gallbladder was placed in the lateral and the cephalad positions. The triangle of Calot was visualized.. The cystic duct was bluntly dissected until the union of the cystic duct and common bile duct was seen. A critical view of safety was achieved. The cystic duct was then divided and sealed with the Harmonic scissors. A PDS Endoloop was then placed throughout the cystic duct stump. The cystic artery divided and sealed with the Harmonic scissors. The gallbladder was then removed from the liver bed using Harmonic scissors. The gallbladder was then extracted through the epigastric port site. Operative field was checked for any bleeding spots and Harmonic scissors was used to coagulate the liver bed. The abdomen was irrigated. The umbilical hernia was repaired laparoscopically. The camera is placed in the epigastric port site. Using a [place] suture passer of the hernia was repaired with 0 Ethibond. Trochars were removed. The skin was closed using interrupted 3-0 Vicryl suture. Dermabond dressing were applied. The patient tolerated the procedure well.
[2019-07-26 08:51] VITALS: TEMP 97.3
[2019-07-26 09:45] VITALS: RESP 18
[2019-07-26 10:21] VITALS: BP 133/82; PULSE 62
== END 2019-07-26 10:33 | disposition home or self-care (01) ==
LOC: OR 06:29
PROVIDERS: ATTEND Surgery
DX: K81.1 Chronic cholecystitis (principal); K42.9 Umbilical hernia without obstruction or gangrene; I10 Essential (primary) hypertension; M19.90 Unspecified osteoarthritis, unspecified site; F17.210 Nicotine dependence, cigarettes, uncomplicated; Z86.14 Personal history of Methicillin resistant Staphylococcus aureus infection; Z86.79 Personal history of other diseases of the circulatory system; Z98.890 Other specified postprocedural states; Z79.82 Long term (current) use of aspirin; Z79.899 Other long term (current) drug therapy; Z97.2 Presence of dental prosthetic device (complete) (partial); Z80.2 Family history of malignant neoplasm of other respiratory and intrathoracic organs; Z82.5 Family history of asthma and other chronic lower respiratory diseases
CPT/HCPCS: 93005; 88304; 80051; 85025; 49652; 47562; J2250; J1644; J1100; J2710; J2405; J0690; J2001; J3010; J1885; J0330; J1170